=== PATIENT | female | born 1980 | race Caucasian/White ===

== ENCOUNTER 2017-01-23 13:17 | Inpatient (IN) | payer OTHER ==
[~2017-01-23] VITALS: Ht 165.1 cm; Wt 99.8 kg
[~2017-01-23 13:17] MED LIST: BUPR100T5 PO; CLON0.5T PO; LAMO100T2 PO; NORE1TAB93 PO; OMEP20TA20 PO; TOPI-37 PO
[2017-01-23 14:14] LABS: BASOPHILS % (AUTO) 0.2 % (0.0-2.0); EOSINOPHILS # (AUTO) 0.1 K/uL (0.0-0.7); EOSINOPHILS % (AUTO) 0.8 % (0.0-7.0); HEMATOCRIT 41.5 % (37.0-47.0); HEMOGLOBIN 14.2 g/dL (12.0-16.0); LYMPHOCYTES # (AUTO) 1.8 K/uL (0.8-4.8); LYMPHOCYTES % (AUTO) 12.7 % (20.5-51.5); MEAN CORPUSCULAR HEMOGLOBIN 29.5 uug (27.0-31.0); MEAN CORPUSCULAR HGB CONC 34 g/dL (32.0-37.0); MEAN CORPUSCULAR VOLUME 86.2 fL (81.0-99.0); MONOCYTES # (AUTO) 0.5 K/uL (0.1-1.30); MONOCYTES % (AUTO) 3.2 % (0.0-11.0); NEUTROPHILS # (AUTO) 11.8 K/uL (1.8-8.9); NEUTROPHILS % (AUTO) 83.1 % (38.5-71.5); PLATELET COUNT (AUTO) 376 K/uL (150-450); RED BLOOD CELL COUNT(AUTO) 4.81 MIL/uL (4.20-5.40); RED CELL DISTRIBUTION WIDTH 12.7 % (11.5-14.5); WHITE BLOOD COUNT (AUTO) 14.2 K/uL (4.0-11.2)
[2017-01-23 14:21] LABS: CALCIUM 9.1 mg/dL (8.5-10.1); CREATININE 0.9 mg/dL (0.6-1.3); POTASSIUM 3.6 mmol/L (3.5-5.1)
[2017-01-23 14:26] LABS: ALBUMIN 3.7 g/dL (3.4-5.0); BILIRUBIN,DIRECT 0.1 mg/dL (0.0-0.2); BILIRUBIN,TOTAL 0.3 mg/dL (0.2-1.0)
[2017-01-23 14:34] LABS: *BLOOD, URINE 2+ (NEGATIVE); *CLARITY,URINE CLOUDY (CLEAR); *COLOR,URINE YELLOW (YELLOW); *KETONES,URINE NEGATIVE (NEGATIVE); *PROTEIN,URINE 1+ (NEGATIVE); *UROBILINOGEN,URINE 0.2 E.U./dl (NORMAL); NITRITE, URINE NEGATIVE (NEGATIVE); UGLUCOSE NEGATIVE (NEGATIVE)
[2017-01-23 14:44] LABS: LEUKOCYTE ESTERASE ,URINE TRACE (NEGATIVE)
[2017-01-23 14:46] LABS: *BILIRUBIN,URIN 1+ (NEGATIVE)
[2017-01-23 14:49] LABS: BACTERIA,URINE FEW /HPF (NONE SEEN); MUCUS,URINE MODERATE /LPF (0-FEW); SQUAMOUS EPITHELIAL CELL,UR MODERATE /HPF (NONE SEEN)
[2017-01-23] MEDS ORDERED: HYDROMORPHONE 1 MG/1 ML DISP.SYRIN ONE (15:59)
[2017-01-23] MEDS ORDERED: ONDANSETRON 4 MG/2 ML VIAL ONE (15:59)
[2017-01-23] MEDS ORDERED: PIPERACILLIN SODIUM/TAZOBACTAM 3.375 G in IV DEXTROSE 5% 50 ML IV ONE (16:00)
[2017-01-23] MEDS ORDERED: PIPERACILLIN/TAZOBACTAM/D5W 50 ML IV ONE (16:00)
[2017-01-23] MEDS ORDERED: HYDROMORPHONE 1 MG/1 ML DISP.SYRIN IV ONE (16:00)
[2017-01-23] MEDS ORDERED: IV NORMAL SALINE 1000 ML BAG IV ONE (16:00)
[2017-01-23] MEDS ORDERED: ONDANSETRON 4 MG/2 ML VIAL IV ONE (16:00)
[2017-01-23 17:00] VITALS: BP 107/71
[2017-01-23] MEDS ORDERED: ONDANSETRON 4 MG/2 ML VIAL IV PRN (17:00)
[2017-01-23] MEDS: POTASSIUM CHLORIDE 20 MEQ in IV D5/ 0.9% NACL 1,000 ML IV PRN (17:26)
[2017-01-23] MEDS: LEVOFLOXACIN 500 MG/D5W 500 MG in PREMIXED 1 EACH IV SCH (17:27)
[2017-01-23] MEDS: METRONIDAZOLE 500 MG/NS 100ML 500 MG in PREMIXED 1 EACH IV SCH ×2 (17:27→21:19)
[2017-01-23] MEDS: PANTOPRAZOLE SODIUM 40 MG VIAL IV SCH (17:46)
[2017-01-23 20:00] VITALS: BP 109/70
[2017-01-23] MEDS: MORPHINE SULFATE 2 MG/1 ML DISP.SYRIN IV PRN (20:03)
[2017-01-24] MEDS: MORPHINE SULFATE 2 MG/1 ML DISP.SYRIN IV PRN ×3 (01:09→22:52)
[2017-01-24] MEDS: METRONIDAZOLE 500 MG/NS 100ML 500 MG in PREMIXED 1 EACH IV SCH ×3 (05:44→21:59)
[2017-01-24] MEDS: PANTOPRAZOLE SODIUM 40 MG VIAL IV SCH (06:01)
[2017-01-24 06:10] VITALS: BP 116/81
[2017-01-24 06:20] LABS: ALBUMIN 3.1 g/dL (3.4-5.0); BILIRUBIN,TOTAL 0.3 mg/dL (0.2-1.0); CALCIUM 8.3 mg/dL (8.5-10.1); CREATININE 0.7 mg/dL (0.6-1.3); MAGNESIUM 2.1 mg/dL (1.8-2.4); PHOSPHOROUS 2.6 mg/dL (2.5-4.9); POTASSIUM 3.8 mmol/L (3.5-5.1); TOTAL PROTEIN, SERUM 7.3 g/dL (6.4-8.2)
[2017-01-24 06:22] LABS: THYROID STIMULATING HORMONE 2.173 mIU/mL (0.358-3.740)
[2017-01-24] MEDS: POTASSIUM CHLORIDE 20 MEQ in IV D5/ 0.9% NACL 1,000 ML IV PRN (06:22)
[2017-01-24 07:24] LABS: BASOPHILS % (AUTO) 0.2 % (0.0-2.0); EOSINOPHILS # (AUTO) 0.1 K/uL (0.0-0.7); EOSINOPHILS % (AUTO) 0.9 % (0.0-7.0); HEMATOCRIT 38.8 % (37.0-47.0); HEMOGLOBIN 13.4 g/dL (12.0-16.0); LYMPHOCYTES # (AUTO) 1.5 K/uL (0.8-4.8); LYMPHOCYTES % (AUTO) 11.4 % (20.5-51.5); MEAN CORPUSCULAR HEMOGLOBIN 29.7 uug (27.0-31.0); MEAN CORPUSCULAR HGB CONC 35 g/dL (32.0-37.0); MEAN CORPUSCULAR VOLUME 86.2 fL (81.0-99.0); MONOCYTES # (AUTO) 0.6 K/uL (0.1-1.30); MONOCYTES % (AUTO) 4.3 % (0.0-11.0); NEUTROPHILS # (AUTO) 10.9 K/uL (1.8-8.9); NEUTROPHILS % (AUTO) 83.2 % (38.5-71.5); PLATELET COUNT (AUTO) 365 K/uL (150-450); RED CELL DISTRIBUTION WIDTH 12.3 % (11.5-14.5); WHITE BLOOD COUNT (AUTO) 13.1 K/uL (4.0-11.2)
[2017-01-24] MEDS ORDERED: BUPIVACAINE/EPI PF 0.25% 30 ML VIAL ONE (10:21)
[2017-01-24 11:05] VITALS: BP 119/76
[2017-01-24 11:11] LABS: EOSINOPHILS % (MANUAL) 1 % (0-8); LYMPHOCYTES % (MANUAL) 15 % (20-40); MONOCYTES % (MANUAL) 4 % (2-10); NEUTROPHILS % (MANUAL) 80 % (42-75)
[2017-01-24 11:12] LABS: PLATELET ESTIMATE ADEQUATE
[2017-01-24] MEDS ORDERED: FENTANYL CITRATE 100 MCG/2 ML AMPUL ONE ×2 (11:22→13:13)
[2017-01-24] MEDS ORDERED: SEVOFLURANE 250 ML BOTTLE ONE (11:22)
[2017-01-24] MEDS ORDERED: MIDAZOLAM HCL 2 MG/2 ML VIAL ONE (11:22)
[2017-01-24] MEDS ORDERED: ROCURONIUM BROMIDE 50 MG/5 ML VIAL ONE (11:23)
[2017-01-24] MEDS ORDERED: SEVOFLURANE 250 ML BOTTLE IH ONE (11:26)
[2017-01-24] MEDS ORDERED: GLYCOPYRROLATE 0.2 MG/ML VIAL MC ONE (11:26)
[2017-01-24] MEDS ORDERED: IV LACTATED RINGERS SOLUTION 1,000 ML BAG MC ONE (11:26)
[2017-01-24] MEDS ORDERED: DEXAMETHASONE SOD PHOSPHATE 4 MG INJ IV ONE (11:26)
[2017-01-24] MEDS ORDERED: NEOSTIGMINE METHYLSULFATE 10 MG/10 ML VIAL IV ONE (11:26)
[2017-01-24] MEDS ORDERED: ONDANSETRON 4 MG/2 ML VIAL IV ONE (11:26)
[2017-01-24] MEDS ORDERED: CEFAZOLIN 1 G VIAL MC ONE (11:26)
[2017-01-24] MEDS ORDERED: LIDOCAINE HCL 1% 20 ML VIAL MC ONE (11:26)
[2017-01-24] MEDS ORDERED: PROPOFOL 200 MG/20 ML BOTTLE IV ONE (11:26)
[2017-01-24] MEDS ORDERED: KETOROLAC TROMETHAMINE 30 MG INJ IM ONE (11:26)
[2017-01-24] MEDS ORDERED: HYDROCODONE/APAP 5-325MG TABLET PO PRN ×2 (12:45)
[2017-01-24] MEDS ORDERED: MORPHINE SULFATE 4 MG/1 ML DISP.SYRIN IV PRN ×2 (13:00)
[2017-01-24 14:00] VITALS: BP 104/62
[2017-01-24 14:30] VITALS: BP 129/78
[2017-01-24 15:34] VITALS: BP 119/81
[2017-01-24] MEDS: LEVOFLOXACIN 500 MG/D5W 500 MG in PREMIXED 1 EACH IV SCH (17:24)
[2017-01-24 20:00] VITALS: BP 112/74
[2017-01-25 05:18] VITALS: BP 108/65
[2017-01-25] MEDS: METRONIDAZOLE 500 MG/NS 100ML 500 MG in PREMIXED 1 EACH IV SCH ×2 (06:04→13:55)
[2017-01-25] MEDS: PANTOPRAZOLE SODIUM 40 MG VIAL IV SCH (06:05)
[2017-01-25 06:51] LABS: EOSINOPHILS % (AUTO) 0.3 % (0.0-7.0); HEMATOCRIT 36.4 % (37.0-47.0); HEMOGLOBIN 12.6 g/dL (12.0-16.0); LYMPHOCYTES # (AUTO) 1.9 K/uL (0.8-4.8); LYMPHOCYTES % (AUTO) 16.6 % (20.5-51.5); MEAN CORPUSCULAR HEMOGLOBIN 29.8 uug (27.0-31.0); MEAN CORPUSCULAR HGB CONC 35 g/dL (32.0-37.0); MEAN CORPUSCULAR VOLUME 86.4 fL (81.0-99.0); MONOCYTES # (AUTO) 0.8 K/uL (0.1-1.30); MONOCYTES % (AUTO) 6.9 % (0.0-11.0); NEUTROPHILS # (AUTO) 8.7 K/uL (1.8-8.9); NEUTROPHILS % (AUTO) 76.2 % (38.5-71.5); PLATELET COUNT (AUTO) 326 K/uL (150-450); RED BLOOD CELL COUNT(AUTO) 4.21 MIL/uL (4.20-5.40); RED CELL DISTRIBUTION WIDTH 12.5 % (11.5-14.5); WHITE BLOOD COUNT (AUTO) 11.4 K/uL (4.0-11.2)
[2017-01-25 07:00] LABS: BILIRUBIN,TOTAL 0.4 mg/dL (0.2-1.0); CALCIUM 8.7 mg/dL (8.5-10.1); CREATININE 0.8 mg/dL (0.6-1.3); POTASSIUM 3.8 mmol/L (3.5-5.1); TOTAL PROTEIN, SERUM 6.9 g/dL (6.4-8.2)
[2017-01-25] MEDS: MORPHINE SULFATE 2 MG/1 ML DISP.SYRIN IV PRN (10:05)
[2017-01-25 11:52] VITALS: BP 110/73
== END 2017-01-25 16:00 | disposition home or self-care (01) | DRG 263 ==
LOC: ER 13:17 → MED 16:18
PROVIDERS: ADMIT Internal Medicine; ATTEND Internal Medicine
PROC: 0FT44ZZ Resection of Gallbladder, Percutaneous Endoscopic Approach (ICD-10-PCS; principal; 2017-01-24 11:26)
DX: K81.0 Acute cholecystitis (principal); N39.0 Urinary tract infection, site not specified; K21.9 Gastro-esophageal reflux disease without esophagitis; E78.1 Pure hyperglyceridemia; Z98.84 Bariatric surgery status; E66.9 Obesity, unspecified; Z68.36 Body mass index [BMI] 36.0-36.9, adult; J98.11 Atelectasis; M41.85 Other forms of scoliosis, thoracolumbar region; F31.9 Bipolar disorder, unspecified; B96.89 Other specified bacterial agents as the cause of diseases classified elsewhere
CPT/HCPCS: 36415; 70030-TC; 71010; 83690; 83735; 84100; 84443; 84703; 85025; 85730; 87040; 87070; 87075; 87077; 87086; 93005; A4663; C9113; J0690; J1100; J1170; J1885; J1956; J2250; J2270; J2405; J2543; J2710; J3010; J3480; J3490; J7030; J7040; J7042; J7120

== ENCOUNTER 2017-01-31 18:44 | Inpatient (IN) | payer OTHER ==
[~2017-01-31] VITALS: Ht 165.1 cm; Wt 113.4 kg
[~2017-01-31 18:44] MED LIST changes: -BUPR100T5 PO; -OMEP20TA20 PO; -TOPI-37 PO
[2017-01-31 19:30] LABS: BASOPHILS % (AUTO) 0.5 % (0.0-2.0); EOSINOPHILS # (AUTO) 0.4 K/uL (0.0-0.7); EOSINOPHILS % (AUTO) 3.9 % (0.0-7.0); HEMATOCRIT 37.5 % (31.2-41.9); HEMOGLOBIN 12.9 g/dL (10.9-14.3); LYMPHOCYTES # (AUTO) 1.8 K/uL (20.0-40.0); MEAN CORPUSCULAR HEMOGLOBIN 29.4 uug (24.7-32.8); MEAN CORPUSCULAR HGB CONC 35 g/dL (32.3-35.6); MEAN CORPUSCULAR VOLUME 85.4 fL (75.5-95.3); MONOCYTES # (AUTO) 0.4 K/uL (2.0-10.0); MONOCYTES % (AUTO) 3.6 % (0.0-11.0); NEUTROPHILS # (AUTO) 7.3 K/uL (1.8-8.9); PLATELET COUNT (AUTO) 381 K/uL (179-408); RED BLOOD CELL COUNT(AUTO) 4.39 MIL/uL (3.63-4.92); RED CELL DISTRIBUTION WIDTH 12.3 % (12.3-17.7); WHITE BLOOD COUNT (AUTO) 9.9 K/uL (3.8-11.8)
[2017-01-31] MEDS ORDERED: MORPHINE SULFATE 2 MG/1 ML DISP.SYRIN IV ONE ×2 (19:30→20:45)
[2017-01-31] MEDS ORDERED: ONDANSETRON 4 MG/2 ML VIAL IV ONE (19:30)
[2017-01-31 19:45] LABS: ALBUMIN 3.4 g/dL (3.4-5.0); BILIRUBIN,DIRECT 0.1 mg/dL (0.0-0.2); BILIRUBIN,TOTAL 0.3 mg/dL (0.2-1.0); CALCIUM 8.9 mg/dL (8.5-10.1); CREATININE 0.9 mg/dL (0.6-1.3); POTASSIUM 4.1 mmol/L (3.5-5.1); TOTAL PROTEIN, SERUM 7.6 g/dL (6.4-8.2)
[2017-01-31] MEDS ORDERED: ONDANSETRON 4 MG/2 ML VIAL ONE (19:47)
[2017-01-31] MEDS ORDERED: MORPHINE SULFATE 4 MG/1 ML DISP.SYRIN ONE (19:47)
[2017-01-31] MEDS ORDERED: MORPHINE SULFATE 2 MG/1 ML DISP.SYRIN ONE (21:19)
[2017-01-31] MEDS ORDERED: IOHEXOL 350 100 ML INFUS..BTL ONE (21:30)
[2017-01-31] MEDS ORDERED: IV NORMAL SALINE 250 ML IV ONE (21:30)
[2017-01-31] MEDS ORDERED: NORMAL SALINE FLUSH 10 ML DISP.SYRIN ONE (21:30)
--- NOTE | 2017-01-31 22:38 | NUR ---
Epic Panel Call placed , call back pending.
[2017-01-31] MEDS ORDERED: ALBUTEROL SULFATE 2.5 MG/3 ML NEBU NEB PRN (23:00)
[2017-01-31] MEDS ORDERED: ACETAMINOPHEN 325 MG TABLET PO PRN (23:00)
[2017-01-31] MEDS ORDERED: CLONAZEPAM 0.5 MG TABLET PO PRN (23:00)
[2017-01-31] MEDS ORDERED: ONDANSETRON 4 MG/2 ML VIAL IV PRN (23:00)
[2017-01-31] MEDS ORDERED: MAGNESIUM HYDROXIDE 30 ML LIQUID UDC PO PRN (23:00)
[2017-01-31] MEDS ORDERED: ENOXAPARIN SODIUM 100 MG/ML DISP.SYRIN SQ ONE ×2 (23:00→23:07)
[2017-01-31 23:35] VITALS: BP 100/67
--- NOTE | 2017-01-31 23:35 | NUR ---
nsg: pt received a/o x 4 fr er via gurney with dx of pulmonary embolism. had laparoscopic cholecystectomy on 01/24, abd with incision and elmer x 3 sites. c/o right sided sharp abd pain. ambulatory. v/s stable. tele, SR. cont to monitor.
[2017-02-01] MEDS: MORPHINE SULFATE 2 MG/1 ML DISP.SYRIN IV PRN ×4 (01:49→20:11)
[2017-02-01] MEDS ORDERED: MORPHINE SULFATE 2 MG/1 ML DISP.SYRIN ONE (01:52)
[2017-02-01] MEDS ORDERED: ONDANSETRON 4 MG/2 ML VIAL ONE (01:52)
--- NOTE | 2017-02-01 03:00 | NUR ---
nsg: no change in condition.
[2017-02-01 04:00] VITALS: BP 99/59
--- NOTE | 2017-02-01 06:29 | NUR ---
nsg: no change in condition. v/s stable. tele, SR.
[2017-02-01 07:04] LABS: BASOPHILS % (AUTO) 0.3 % (0.0-2.0); EOSINOPHILS # (AUTO) 0.4 K/uL (0.0-0.7); EOSINOPHILS % (AUTO) 4.3 % (0.0-7.0); HEMATOCRIT 35.6 % (31.2-41.9); HEMOGLOBIN 12.2 g/dL (10.9-14.3); LYMPHOCYTES # (AUTO) 2.5 K/uL (20.0-40.0); LYMPHOCYTES % (AUTO) 27.5 % (20.5-51.5); MEAN CORPUSCULAR HEMOGLOBIN 29.8 uug (24.7-32.8); MEAN CORPUSCULAR HGB CONC 34 g/dL (32.3-35.6); MEAN CORPUSCULAR VOLUME 87.2 fL (75.5-95.3); MONOCYTES # (AUTO) 0.5 K/uL (2.0-10.0); MONOCYTES % (AUTO) 5.2 % (0.0-11.0); NEUTROPHILS # (AUTO) 5.7 K/uL (1.8-8.9); NEUTROPHILS % (AUTO) 62.7 % (38.5-71.5); PLATELET COUNT (AUTO) 354 K/uL (179-408); RED BLOOD CELL COUNT(AUTO) 4.08 MIL/uL (3.63-4.92); RED CELL DISTRIBUTION WIDTH 12.4 % (12.3-17.7); WHITE BLOOD COUNT (AUTO) 9.1 K/uL (3.8-11.8)
[2017-02-01] MEDS ORDERED: HYDR-3026 PO (07:21)
[2017-02-01 07:22] LABS: BILIRUBIN,TOTAL 0.2 mg/dL (0.2-1.0); CALCIUM 8.4 mg/dL (8.5-10.1); CREATININE 0.8 mg/dL (0.6-1.3); MAGNESIUM 2.3 mg/dL (1.8-2.4); POTASSIUM 3.8 mmol/L (3.5-5.1); TOTAL PROTEIN, SERUM 6.9 g/dL (6.4-8.2)
[2017-02-01] MEDS ORDERED: CEPH-570 PO (07:22)
[2017-02-01] MEDS ORDERED: LORA10TA7 PO (07:22)
[2017-02-01] MEDS ORDERED: OXYC-128 PO (07:24)
[2017-02-01 07:32] VITALS: BP 98/62
--- NOTE | 2017-02-01 07:50 | NUR ---
awake alert and oriented, states has pain on abdomen and when taking a deep breath- 04/24, medicated with Morphine 2 mg iv as prn- education on side effects done, explained plan of care- verbalized understanding, on room air, states "has slight shortness of breath/ pain when she takes a deep breath otherwise am fine", Tele SR 66, call lite within reach
[2017-02-01] MEDS: PANTOPRAZOLE SODIUM 40 MG TABLET.DR PO SCH (08:02)
[2017-02-01] MEDS: LAMOTRIGINE 100 MG TABLET PO SCH (08:35)
[2017-02-01] MEDS ORDERED: ENOXAPARIN SODIUM 60 MG/0.6 ML DISP.SYRIN SQ SCH (09:00)
[2017-02-01 11:51] VITALS: BP 92/57
--- NOTE | 2017-02-01 12:00 | NUR ---
appetite fair, no bleeding noted, no shortness of breath noted, needs attended, tele SR 60's
--- NOTE | 2017-02-01 14:00 | NUR ---
c/o of abdominal pain- medicated with Morphine 2 mg iv as prn, 2D Echo being done in the room
--- NOTE | 2017-02-01 16:15 | NUR ---
downgraded to tele
[2017-02-01 16:32] VITALS: BP 98/65
--- NOTE | 2017-02-01 19:10 | NUR ---
resting in bed, no distress noted, all needs attended and met, call light within reach
[2017-02-01] MEDS: RIVAROXABAN 15 MG TABLET PO SCH (20:12)
[2017-02-01 20:16] VITALS: BP 114/76
[2017-02-01] MEDS ORDERED: DOCUSATE SODIUM 250 MG CAPSULE PO SCH (21:00)
[2017-02-01] MEDS ORDERED: DOCUSATE SODIUM 100 MG CAPSULE PO SCH (21:00)
[2017-02-01] MEDS: HYDROCODONE/APAP 5-325MG TABLET PO PRN (22:07)
[2017-02-02] VITALS: BP 97/65
[2017-02-02 04:00] VITALS: BP 102/69
--- NOTE | 2017-02-02 06:27 | NUR ---
SLEEPING WELL OVERNIGHT HAD X1 MORPHINE AND X1 NORCO FOR RUQ ABDOMINAL PAIN, KEPT NPO AFTER MIDNIGHT FOR ULTRASOUND TODAY,NO BM, VSS AFEBRILE, SINUS RHYTHM ON MONITOR.ALL NEEDS ATTENDED.
--- NOTE | 2017-02-02 07:30 | NUR ---
PT RECEIVED IN BED AWAKE ,PT C/O PAIN .V/S ARE STABLE.MORNING ASSESSMENT DONE.PT IS AXOX4. BREAKFAST SERVED.
[2017-02-02 07:35] LABS: ALBUMIN 3.1 g/dL (3.4-5.0); BILIRUBIN,TOTAL 0.2 mg/dL (0.2-1.0); CREATININE 0.8 mg/dL (0.6-1.3); MAGNESIUM 2.3 mg/dL (1.8-2.4); PHOSPHOROUS 4.2 mg/dL (2.5-4.9); TOTAL PROTEIN, SERUM 7.4 g/dL (6.4-8.2)
[2017-02-02 07:38] LABS: BASOPHILS % (AUTO) 0.2 % (0.0-2.0); EOSINOPHILS # (AUTO) 0.4 K/uL (0.0-0.7); EOSINOPHILS % (AUTO) 5.7 % (0.0-7.0); HEMATOCRIT 37.7 % (31.2-41.9); HEMOGLOBIN 12.9 g/dL (10.9-14.3); LYMPHOCYTES # (AUTO) 1.8 K/uL (20.0-40.0); LYMPHOCYTES % (AUTO) 26.4 % (20.5-51.5); MEAN CORPUSCULAR HEMOGLOBIN 29.3 uug (24.7-32.8); MEAN CORPUSCULAR HGB CONC 34 g/dL (32.3-35.6); MEAN CORPUSCULAR VOLUME 86.1 fL (75.5-95.3); MONOCYTES # (AUTO) 0.4 K/uL (2.0-10.0); MONOCYTES % (AUTO) 6.3 % (0.0-11.0); NEUTROPHILS # (AUTO) 4.1 K/uL (1.8-8.9); NEUTROPHILS % (AUTO) 61.4 % (38.5-71.5); PLATELET COUNT (AUTO) 387 K/uL (179-408); RED BLOOD CELL COUNT(AUTO) 4.39 MIL/uL (3.63-4.92); RED CELL DISTRIBUTION WIDTH 12.2 % (12.3-17.7); WHITE BLOOD COUNT (AUTO) 6.7 K/uL (3.8-11.8)
[2017-02-02] MEDS: PANTOPRAZOLE SODIUM 40 MG TABLET.DR PO SCH (07:41)
[2017-02-02] MEDS: MORPHINE SULFATE 2 MG/1 ML DISP.SYRIN IV PRN (07:51)
[2017-02-02] MEDS: RIVAROXABAN 15 MG TABLET PO SCH (08:02)
[2017-02-02] MEDS: LAMOTRIGINE 100 MG TABLET PO SCH (08:02)
[2017-02-02] MEDS ORDERED: MAGNESIUM HYDROXIDE 30 ML LIQUID UDC PO ONE (11:00)
[2017-02-02 11:22] VITALS: BP 107/62
[2017-02-02] MEDS: HYDROCODONE/APAP 5-325MG TABLET PO PRN (12:29)
[2017-02-02] MEDS ORDERED: HYDR-3326 PO (12:30)
[2017-02-02] MEDS ORDERED: RIVA20TA PO (12:35)
[2017-02-02] MEDS ORDERED: RIVA15TA PO (12:36)
--- NOTE | 2017-02-02 13:14 | NUR ---
D/C ORDERS RECEIVED NOTED AND CARRIED OUT.D/C INSTRUCTIONS AND EDUCATIONS GIVEN TO THE PT.D/C HEPLOCK PER MD ORDERS,PT LEFT THE FACILITY VIA PRIVATE CAR IN STABLE CONDITION.
== END 2017-02-02 13:10 | disposition home or self-care (01) | DRG 134 ==
LOC: ER 18:44 → TELE-TD 23:19 → TELE 02-01 16:30
PROVIDERS: ADMIT Internal Medicine; ATTEND Internal Medicine
DX: I26.99 Other pulmonary embolism without acute cor pulmonale (principal); E44.0 Moderate protein-calorie malnutrition; Z68.41 Body mass index [BMI] 40.0-44.9, adult; E66.9 Obesity, unspecified; F31.9 Bipolar disorder, unspecified; K21.9 Gastro-esophageal reflux disease without esophagitis; Z98.84 Bariatric surgery status; E66.01 Morbid (severe) obesity due to excess calories; T38.4X5A Adverse effect of oral contraceptives, initial encounter; Y92.009 Unspecified place in unspecified non-institutional (private) residence as the place of occurrence of the external cause; Z90.49 Acquired absence of other specified parts of digestive tract; F41.9 Anxiety disorder, unspecified; Z87.440 Personal history of urinary (tract) infections; K59.00 Constipation, unspecified
CPT/HCPCS: 36415; 70030-TC; 71010; 71275; 76705; 83690; 83735; 84100; 84703; 85025; 93005; A4663; J1650; J2270; J2405; J3490; J7050; Q9967

== ENCOUNTER 2017-02-03 09:05 | Emergency (ER) | payer OTHER ==
[~2017-02-03] VITALS: Ht 165.1 cm; Wt 113.4 kg
[~2017-02-03 09:05] MED LIST changes: +HYDR-3326 PO; -NORE1TAB93 PO; +RIVA15TA PO; +RIVA20TA PO
--- NOTE | 2017-02-03 09:59 | NUR ---
Patient discharged to home in stable conditon. Written and verbal after care instructions given to patient specially yo follow-up with her primary doctor. Patient verbalizes understanding of instructions.
== END 2017-02-03 10:01 | disposition home or self-care (01) ==
LOC: ER 09:05
DX: M70.61 Trochanteric bursitis, right hip (principal); K21.9 Gastro-esophageal reflux disease without esophagitis; F31.9 Bipolar disorder, unspecified; E66.9 Obesity, unspecified; Z88.8 Allergy status to other drugs, medicaments and biological substances; Y93.89 Activity, other specified
CPT/HCPCS: 73502; A4663